=== PATIENT | female | born 1990 | race African-American/Black ===

== ENCOUNTER 2023-06-03 22:04 | Emergency (ER) | payer OTHER ==
[~2023-06-03] VITALS: Ht 167.6 cm; Wt 122.5 kg
[2023-06-03 22:25] VITALS: O2SAT 99
[2023-06-03] MEDS: AMOXICILLIN/CLAVULANATE K 875 MG TAB PO STA (23:01)
[2023-06-03] MEDS ORDERED: CEPHALEXIN500 MG PO (23:05)
== END 2023-06-03 23:17 | disposition home or self-care (01) ==
LOC: FSED 22:19
DX: O23.41 Unspecified infection of urinary tract in pregnancy, first trimester (principal); D64.9 Anemia, unspecified
CPT/HCPCS: 81003; 99283